=== PATIENT | male | born 1970 | race Hispanic/Latino ===

== ENCOUNTER 2016-08-25 22:57 | Emergency (ER) | payer OTHER ==
[~2016-08-25] VITALS: Ht 160 cm; Wt 113.6 kg
[2016-08-25 23:14] VITALS: BP 152/98; PULSE 65; RESP 16; O2SAT 95
[2016-08-25 23:28] LABS: BASOPHILS % (AUTO) 0.4 % (0-3); EOSINOPHILS % (AUTO) 3.2 % (0-5); Mean Corpuscular Volume 82.8 fL (81-100); NEUTROPHILS % (AUTO) 61.3 % (40-74); Platelet Count 222 bil/L (150-400)
[2016-08-25 23:42] LABS: TROPONIN T 0.01 ug/L (0.0-0.011)
[2016-08-26] VITALS: BP 140/68; PULSE 69; RESP 16; O2SAT 97
--- NOTE | 2016-08-26 00:19 | ED.REPORT ---
HPI-Chest Pain 40 and Over Date of Service Aug 26, 2016 ED Provider: Terry Kelly DO A 46 year old male with no pertinent medical history presents to the ED with non cardiac chest pain secondary to an injury that occurred earlier this afternoon. Patient reports that he was swinging a vacuum backpack onto his left shoulder when he experienced sudden onset pain to his chest and shoulder. His pain has been constant since onset and is exacerbated by rotational movement. He denies any similar previous episodes of pain and denies any "pop" during the injury. Patient denies SOB, nausea or any other anginal symptoms following the episode. Nursing Notes Stated Complaint: RAPID HEART/ LEFT SHOULDER PAIN Chief Complaint: Chest Pain Nursing Notes Reviewed: Yes Allergies: Coded Allergies: No Known Allergies (Verified Allergy, Unknown, 10/10/15) General Time Seen by MD: 00:18 Chief Complaint Chest pain Hx Obtained From: Patient Arrived By: Walk-in Sudden in Onset?: Yes Onset Occurred: 9 - 12 hours ago Context of Onset: Accident Symptom Duration: Since onset Location: : Chest left: Chest right Quality: Aching Radiation: : Does not radiate Migration/Movement: Reports: None Severity: Current: Mild Severity: Maximum: Moderate Associated with: Denies: Nausea, Shortness of Breath Pertinent Negative: Pt denies other symptoms Exacerbated by: Movement Recent Healthcare: No recent doctor visit, No recent hospitalization Risk Factors )( CAD Risk Stratification Risk factors reviewed )( TAD Risk Stratification Risk factors reviewed )( PE Risk Stratification Risk factors reviewed Past Medical History Past Medical History Healthy Past Surgical History Denies Family History Diabetes Mellitus Smoking History Never Smoker Social History Alcohol Use: Denies alcohol use Drug Use: Denies drug use Other Social History: Good social support, Local resident Ambulatory Status Independent Review of Systems Respiratory: Denies: Shortness of breath Cardiovascular: Reports: Chest pain GI: Denies: Nausea Musculoskeletal: Reports: Joint pain (left shoulder pain), Denies: Back pain, Neck pain Complete sys rev & neg: except as marked. Physical Exam Initial Vital Signs Vital Signs (First) Date Time Temp Pulse Resp B/P Pulse Ox O2 Delivery O2 Flow Rate FiO2 08/25/16 23:14 37.1 65 16 152/98 95 Room Air Initial VS: Reviewed Head / Eyes: Atraumatic, Normocephalic, PERRL Neck: Supple, Non-tender, Full range of motion Extremities: Vascular intact, Neuro intact, No swelling, No tenderness Skin: Warm, Dry, No cyanosis Neurologic: Alert, Oriented, Nonfocal Psychiatric: Mood/affect normal, Behavior normal, Normal thought content General/Constitutional: Awake, Alert, No acute distress Respiratory / Chest: Atraumatic, Breath sounds NL, Breath sounds = bilat, No respiratory distress CHEST: Reproducible pain to the left shoulder around the posterior deltoid Tenderness to anterior pectoralis Cardiovascular: Heart rate NL, Regular rhythm, Heart sounds NL Abdomen: Atraumatic, Soft, Non-tender Interpretation & Diagnostics Lab Results Interpretation Result Diagram: 08/25/16 2315 08/25/16 2315 Test 08/25/16 23:15 08/26/16 01:29 White Blood Count 7.6th/mm3 (3.8-10.1) Red Blood Count 5.16mil/mm3 (4.40-5.80) Hemoglobin 15.5g/dL (13.8-17.2) Hematocrit 42.7% (41.0-50.0) Mean Corpuscular Volume 82.8fL (81-100) Mean Corpuscular Hemoglobin 30.0pg (27.0-35.0) Mean Corpuscular Hemoglobin Concent 36.3% (32.0-37.0) Red Cell Distribution Width 12.6% (12.3-15.4) Platelet Count 222bil/L (150-400) Neutrophils (%) (Auto) 61.3% (40-74) Lymphocytes (%) (Auto) 28.0% (14-46) Monocytes (%) (Auto) 7.0% (4-12) Eosinophils (%) (Auto) 3.2% (0-5) Basophils (%) (Auto) 0.4% (0-3) D-Dimer < 0.50mg/L FEU (<0.50) Sodium Level 140mEq/L (134-144) Potassium Level 4.6mEq/L (3.5-5.2) Chloride Level 100mEq/L (97-108) Carbon Dioxide Level 24mmol/L (18-29) Blood Urea Nitrogen 19mg/dL (6-24) Creatinine 1.03mg/dL (0.76-1.27) Estimat Glomerular Filtration Rate 82mL/min (>59) Glucose Level 132mg/dL (60-99) Calcium Level 9.3mg/dL (8.5-10.1) Magnesium Level 2.0mg/dL (1.6-2.6) Total Bilirubin 0.5mg/dL (0.0-1.2) Aspartate Amino Transf (AST/SGOT) 26U/L (0-50) Alanine Aminotransferase (ALT/SGPT) 17U/L (0-44) Alkaline Phosphatase 54U/L (25-150) Total Protein 7.3g/dL (6.4-8.4) Albumin 4.8g/dL (3.4-5.0) Hold Arce Top Tube Received (Received) Troponin T 0.010ug/L (0.0-0.011) ECG Interpretation ECG Interpretation: Normal Sinus Rhythm Rate [address] premature complexes No ST changes Time: 23:15 Interpreted by: ED physician X-Ray Chest Interpretation Chest Xray Interpretation: IMPRESSION: No acute Interpretation / Wet Read by: Wet read ED physician Re-Eval/Medical Decision Med Decision/Clinical Course 46-year-old male with clearly musculoskeletal shoulder pain. His heart scores commensurate with outpatient treatment. His EKG is normal. Serum troponins are normal. D-dimer is negative. Clinically he has no evidence whatsoever acute coronary syndrome and his pain is musculoskeletal. As such will be discharged home recommended analgesia rest and close outpatient follow-up. He concurs with the plan Time of Eval: 02:17 Patient Status: Condition improved Re-Evaluation/Progress Note: Pain has improved and patient is requesting discharge. All questions are addressed. He is given strict return precautions. Counseled Regarding: Diagnosis, Lab results, Need for follow-up, When/why to return to ED Discharge & Departure Primary Impression: Shoulder pain, left Chronicity: acute Qualified Code: M25.512 - Pain in left shoulder Additional Impression: Chest pain Chest pain type: unspecified Qualified Code: R07.9 - Chest pain, unspecified Disposition: Home Discharge Condition All VS Reviewed: Yes Condition: Improved Patient Instructions: Chest Pain (ED), Shoulder Bursitis (ED) Additional Instructions: Thank you for trusting us with your care this evening. Your emergency department evaluation today including lab work, EKG and chest X- ray are reassuring that there is no dangerous cause for concern at this time and your symptoms are likely musculoskeletal. A clear cause of your symptoms was not identified and I recommend you schedule a follow up appointment with your primary care physician in the next 2-3 days for a recheck.. Take ibuprofen as directed for pain. Please return to the ED if you begin to experience any new or worsening symptoms including any shortness of breath, worsening chest pain, nausea, or vomiting. Referrals: [facility] (PCP) [facility] Scribe Attestation Portions of this note were transcribed by Antonia Burt. I, Dr. Kelly personally performed the history, physical exam and medical decision-making; I reviewed and confirmed the accuracy of the information in the transcribed note. Signed by: Ekta Gillis, 08/26/16 0300. Terry Kelly DO Aug 26, 2016 00:19 ANTONIA BURT Aug 26, 2016 02:17
[2016-08-26 02:47] VITALS: BP 126/70; PULSE 60; RESP 16; O2SAT 98
--- NOTE | 2016-08-26 08:36 | DRSVH ---
PROCEDURE: X-RAY CHEST ONE VIEW, PORTABLE ([id number]) INDICATIONS: RAPID HEART RATE, L SHOULDER PAIN TECHNIQUE: One view of the chest was acquired. COMPARISON: None. FINDINGS: Surgical changes and devices: None. Lungs and pleura: No pleural effusions or pneumothorax. Lungs are clear. Mediastinum: Mediastinal contours appear normal. Heart size is normal. Bones and chest wall: No suspicious bony lesions. Overlying soft tissues appear unremarkable. IMPRESSION: No acute cardiopulmonary disease. Dictated by: William Garg [facility] Interpreted: Lana Hurst MD on 08/26/2016 at 8:35 Transcribed by: NAVDEEP on 08/26/2016 at 8:35 Approved by: Lana Hurst MD, PhD on 08/26/2016 at 8:46
== END 2016-08-26 02:51 | disposition home or self-care (01) ==
LOC: SED 22:57
DX: M25.512 Pain in left shoulder (principal); R07.89 Other chest pain; X50.0XXA Overexertion from strenuous movement or load, initial encounter; Y93.89 Activity, other specified; Y92.9 Unspecified place or not applicable; Y99.8 Other external cause status
CPT/HCPCS: 36415; 71010; 80053; 83735; 84484; 85025; 85378; 93005; 96374; 99285; J1885

== ENCOUNTER 2016-12-12 01:12 | Emergency (ER) | payer OTHER ==
[~2016-12-12] VITALS: Ht 170.2 cm; Wt 111.4 kg
[2016-12-12 01:15] VITALS: BP 139/80; PULSE 55; RESP 16; O2SAT 96
--- NOTE | 2016-12-12 01:24 | ED.REPORT ---
HPI-Back Pain 40 and Over Date of Service Dec 12, 2016 ED Provider: Heladio Bates MD A 46 year old male with no pertinent medical history presents to the ED complaining of right-sided back pain. The pt fell down three steps of a ladder this evening onto his right side, though his left leg broke the fall. He hopped off the third step thinking he was on the second step, landed on his left leg, and then flopped over under his right side. He did not initially experience much pain, but has developed significant right-sided back pain and muscle spasms as the night has gone on. The pt denies loss of consciousness or other trauma. Denies incontinence denies numbness or tingling. Nursing Notes Stated Complaint: FALL FROM LADDER, BACK/RIGHT SIDE PAIN Chief Complaint: Back Pain or Injury Nursing Notes Reviewed: Yes Allergies: Coded Allergies: No Known Allergies (Verified Allergy, Unknown, 12/12/16) Scheduled Famotidine (Pepcid) 20 Mg Tablet 20 MG PO BID Methocarbamol (Robaxin-750) 750 Mg Tablet 1-2 TAB PO QID Scheduled PRN Naproxen (Naprosyn) 500 Mg Tablet 500 MG PO BID PRN PRN For Pain General Time Seen by MD: 01:23 Chief Complaint Back pain Hx Obtained From: Patient Arrived By: Walk-in Sudden in Onset?: Yes Onset Occurred: 1 - 4 hours ago Symptom Duration: Since onset Recent Healthcare: Recent doctor visit Similar Sx Previous: No Past Medical History Past Medical History none reported Past Surgical History none reported Family History Diabetes Mellitus Smoking History Never Smoker Social History Alcohol Use: "Social" Drug Use: Denies drug use Other Social History: Good social support, Local resident Ambulatory Status Independent Review of Systems Review of Systems Note: muscle spasms Respiratory: Denies: Non-productive cough, Shortness of breath Cardiovascular: Denies: Chest pain GI: Denies: Abdominal pain, Vomiting Musculoskeletal: Reports: Back pain, Denies: Neck pain Neurologic: Denies: Change LOC Complete sys rev & neg: except as marked. Physical Exam Initial Vital Signs Vital Signs (First) Date Time Temp Pulse Resp B/P Pulse Ox O2 Delivery O2 Flow Rate FiO2 12/12/16 01:15 36.1 55 16 139/80 96 Room Air Initial VS: Reviewed General/Constitutional: Awake, Alert Appearance / Presentation: Positive: Obese Respiratory / Chest: Atraumatic, Breath sounds NL, Breath sounds = bilat, No respiratory distress Cardiovascular: Heart rate NL, Regular rhythm, Heart sounds NL Abdomen: Atraumatic, Soft, Non-tender Back: Full range of motion V-shaped contusion on right lower ribs tender right sacral notch no tenderness of the midline cervical, thoracic or lumbar spines Neurologic: Oriented X3, Speech NL, No motor deficits, No sensory deficits Neck: Atraumatic, Supple, Full range of motion Lower Extremity / Pelvis / MS: Atraumatic, Full range of motion Skin: No rash, Warm, Dry Head / Eyes: Atraumatic, Normocephalic, PERRL, EOMI ENT: Atraumatic, Airway patent, Mucous membranes moist Upper Extremity / MS: Atraumatic, Full range of motion Psychiatric: Affect NL, Mood NL Interpretation & Diagnostics Interpretation & Diagnostics: Right Rib X-Ray: no overt rib fracture Lumbar Spine X-Ray: spur formation and osteoarthritis no acute findings Lab Results Interpretation Test 12/12/16 02:00 Hold Urine Received (Received) Re-Eval/Medical Decision Med Decision/Clinical Course Right back pain on low ribs and sacrum after moderate fall. Urine is without significant hematuria. X-ray shows no obvious for fractures, though cannot exclude a small nondisplaced fracture. No sacral fracture or lumbar fracture. He is significant DJD and DDD with spur formation. On with Naprosyn, Pepcid, and Robaxin. Discharged in stable condition. Source of Hx: Old records Re-Evaluation/Progress : Time of Eval: 02:15 Patient Status: Condition improved Re-Evaluation/Progress Note: Pt rechecked, who is comfortable. The diagnosis and plan for discharge are discussed. The pt understands and agrees with the plan. All questions are addressed at this time. Counseled Regarding: Diagnosis, Lab results, Need for follow-up, When/why to return to ED Discharge & Departure Impression: Primary Impression: Low back pain Chronicity: acute Back pain laterality: right Sciatica presence: without sciatica Qualified Code: M54.5 - Low back pain Additional Impression: Contusion of rib on right side Encounter type: initial encounter Qualified Code: S20.211A - Contusion of right front wall of thorax, initial encounter Disposition: Home Discharge Condition All VS Reviewed: Yes Condition: Stable Patient Instructions: Low Back Strain (ED), Rib Contusion (ED) Additional Instructions: We do not see a rib fracture on the x-ray, but we cannot exclude a small nondisplaced fracture. The treatment is the same in any case. Deep breathing and regular dosing with Naprosyn and muscle relaxer. Rest, heat to the area, and follow-up with your doctor this week. Return if any difficulty breathing, or other new symptoms of concern. Begin Naprosyn twice daily. Begin Robaxin 1-2 tablets four times daily. Take Pepcid twice daily as long as you are taking Naprosyn. No vemos maia fractura de elmo en la radiografa, don no podemos excluir maia pequea fractura no desplazada. El tratamiento es el mismo en cualquier ngoc. Respiracin profunda y dosificacin regular con Naprosyn y relajante muscular. Descanse, caliente al elida y realice el seguimiento con richards mdico esta semana. Regrese si tiene dificultad para respirar, u otros sntomas nuevos de preocupaci n. Comience Naprosyn dos veces al da. Comience con Robaxin 1-2 tabletas cuatro veces al da. [place] Pepcid dos veces al da mientras tome Naprosyn. Referrals: [facility] Scribe Attestation Portions of this note were transcribed by Ceferino Keating. I, Dr. Bates personally performed the history, physical exam and medical decision-making; I reviewed and confirmed the accuracy of the information in the transcribed note. copies to: [facility] Heladio Bates MD Dec 12, 2016 01:23 CEFERINO KEATING Dec 12, 2016 01:32
[2016-12-12] MEDS ORDERED: METH-313 PO (02:05)
[2016-12-12] MEDS ORDERED: NAPR500T PO (02:05)
[2016-12-12] MEDS ORDERED: FAMO20T PO (02:05)
[2016-12-12 02:28] VITALS: BP 126/79; PULSE 54; RESP 16; O2SAT 99
--- NOTE | 2016-12-12 08:27 | DRSVH ---
PROCEDURE: X-RAY LUMBAR SPINE, 2 OR 3 VIEW INDICATIONS: fall from ladder TECHNIQUE: 3 views of the lumbar spine were acquired. COMPARISON: None. FINDINGS: Bones: 5 [id number] vertebrae are present. There is normal bony alignment. No vertebral body c ompression fractures. No suspicious bony lesions. Soft tissues: Overlying bowel gas pattern is normal. No suspicious soft tissue calcifications. IMPRESSION: Moderately severe degenerative disc disease and facet osteoarthritis of the middle and lo wer thirds of the LS spine but no definite acute trauma seen. Please note that MR scanning may allow detection of injury not identifiable by plain film. Dictated by: Shoaib Flores M.D. on 12/12/2016 at 8:25 Approved by: Shoaib Flores M.D. on 12/12/2016 at 8:26
--- NOTE | 2016-12-12 08:28 | DRSVH ---
PROCEDURE: X-RAY RIGHT RIBS INCLUDEING PA CHEST, MINUMUM THREE VIEWS ([id number]) INDICATIONS: fall from ladder TECHNIQUE: A 4 views of the right ribs were acquired, along with a single view chest. COMPARISON: None. FINDINGS: Surgical changes and devices: None. Bones and chest wall: No fractures or dislocations. No suspicious bony lesions. Overlying soft tis sues appear unremarkable. Lungs and pleura: No pleural effusions or pneumothorax. Lungs appear clear. Mediastinum: Mediastinal contours appear normal. Heart size is normal. IMPRESSION: No trauma found. Dictated by: Shoaib Flores M.D. on 12/12/2016 at 8:26 Approved by: Shoaib Flores M.D. on 12/12/2016 at 8:26
== END 2016-12-12 02:29 | disposition home or self-care (01) ==
LOC: SED 01:12
DX: M54.5 Low back pain (principal); S20.211A Contusion of right front wall of thorax, initial encounter; W11.XXXA Fall on and from ladder, initial encounter; Y93.9 Activity, unspecified; Y92.9 Unspecified place or not applicable; Y99.8 Other external cause status
CPT/HCPCS: 71101; 72100; 96372; 99284; J1885